=== PATIENT | male | born 1945 | race Caucasian/White ===

== ENCOUNTER 2017-06-28 17:49 | Emergency (ER) | payer SELFPAY ==
[2017-06-28 18:01] VITALS: BP 123/53
--- NOTE | 2017-06-28 18:08 | UC ---
Skin Complaint HPI - HPI Summary HPI Summary: noticed a sore lump in the inferior left axilla yesterday, with increasing redness and tenderness today. No fever. No apparent history of pre-existing cyst or nodule in the axillary area. He has not taken anything for pain. - History of Current Complaint Chief Complaint: UCSkin Time Seen by Provider: 06/28/17 17:56 Stated Complaint: SKIN COMPLAINT Hx Obtained From: Patient, Family/Lung Splitter - here with his . Onset/Duration: Gradual Onset, Lasting Days - 1 Timing: Constant Onset Severity: Mild Current Severity: Moderate Location: Discrete - inferior left axilla Character: Swelling, Redness, Painful Aggravating: Clothing, Touch Associated Signs & Symptoms: Positive: Negative - Allergy/Home Medications Allergies/Adverse Reactions: Allergies Allergy/AdvReac Type Severity Reaction Status Date / Time No Known Allergies Allergy Verified 06/28/17 18:01 Home Medications: Home Medications Atorvastatin* [Lipitor*] 80 mg PO DAILY 06/28/17 [History Confirmed 06/28/17] Carvedilol TAB* [Coreg TAB*] 6.25 mg PO BID 06/28/17 [History Confirmed 06/28/17 ] Sacubitril-Valsartan [Entresto 24-26 mg] 1 tab PO BID 06/28/17 [History Confirmed 06/28/17] Review of Systems Constitutional: Negative Skin: Other - redness and nodule left axillary area. Eyes: Negative ENT: Negative Respiratory: Negative Cardiovascular: Other - hx of heart valve replacment, hx of bypass. No current chest pain or dyspnea. Gastrointestinal: Negative Genitourinary: Negative Motor: Negative Neurovascular: Negative Musculoskeletal: Negative Neurological: Negative Psychological: Negative All Other Systems Reviewed And Are Negative: Yes PMH/Surg Hx/FS Hx/Imm Hx Cardiovascular History: Cardiac Disease - history of aortic valve replacement and CABG - Surgical History Surgical History: Yes Surgery Procedure, Year, and Place: SX REPAIR OF LEFT KNEE. OPEN HEART SX--2015. RLE FX REPAIR - Family History Known Family History: Positive: Cardiac Disease - brother and mother, Hypertension, Diabetes - Social History Occupation: Retired Lives: With Family Alcohol Use: None Substance Use Type: None Smoking Status (MU): Former Smoker When Did the Patient Quit Smoking/Using Tobacco: 1991 Physical Exam Triage Information Reviewed: Yes Appearance: Pain Distress - moderate with touch, Obese Vital Signs: Initial Vital Signs Temp 98.6 F 06/28/17 17:54 Pulse 66 06/28/17 17:54 Resp 17 06/28/17 17:54 BP 123/53 06/28/17 17:54 Pulse Ox 99 06/28/17 17:54 Eye Exam: Normal ENT Exam: Normal ENT: Positive: Pharynx normal Dental: Positive: Other: - upper denture Neck: Positive: Supple, Nontender, No Lymphadenopathy Respiratory Exam: Other - mid sternal scar Respiratory: Positive: Lungs clear, Normal breath sounds Cardiovascular: Positive: RRR, Murmur:Sys:Grade _?_/ - 2 Musculoskeletal Exam: Normal Neurological: Positive: Alert, Muscle Tone Normal Psychological Exam: Normal Skin Exam: Other - 7 x 6.5 area of erythema anterior inferior left axilla, with indurated area 3 x 2 cm without pointing. Area is firm and tender. No nodes palpalbe in axilla. Course/Dx - Course Course Of Treatment: cephalexin for treatment of cellulitis. Follow up to assess if abscess is forming, suggested 48 hour follow up. Hot compresses. Acetaminophen for pain control - Differential Diagnoses - Skin Complaint Differential Diagnoses: Abscess, Cellulitis, Lymphadenitis - Diagnoses Provider Diagnoses: cellulitis left axilla with ? lymphadenitis versus cyst. Discharge - Discharge Plan Condition: Stable Disposition: HOME Prescriptions: Cephalexin CAP* [Keflex 500 CAP*] 500 mg PO QID #30 cap Patient Education Materials: Cellulitis (ED) Referrals: No Primary Care Phys,NOPCP [Medical Doctor] - Additional Instructions: begin cephalexin and apply hot compresses to the left axilla. Follow up in 2 days to assess if there is an abscess forming. Use acetaminophen for control of pain, taking 650mg up to 3 times per day.
== END 2017-06-28 18:31 | disposition home or self-care (01) ==
LOC: UCCORT 17:49
DX: L03.112 Cellulitis of left axilla (principal); I51.9 Heart disease, unspecified; Z95.2 Presence of prosthetic heart valve; Z95.1 Presence of aortocoronary bypass graft; Z87.891 Personal history of nicotine dependence
CPT/HCPCS: 99212; G0463